=== PATIENT | female | born 1955 | race Caucasian/White ===

== ENCOUNTER 2017-12-14 09:11 | Outpatient (CLI) | payer BC ==
--- NOTE | 2017-12-14 14:37 | NM ---
HEPATOBILIARY SCAN: HISTORY: Nausea. RADIOPHARMACEUTICAL: Technetium 99m mebrofenin 5 millicuries injected intravenously. FINDINGS: There is good tracer extraction by the liver with normal excretion into the biliary tract, and the sm all bowel loops, and normal filling of the gallbladder. The calculated gallbladder ejection fraction following an oral fatty meal measures 51%. IMPRESSION: Normal exam. POS: [facility]
== END 2017-12-14 09:12 | disposition home or self-care (01) ==
LOC: NM 09:11
PROVIDERS: ATTEND Internal Medicine Gastroenterology
DX: K58.9 Irritable bowel syndrome, unspecified (principal); K21.9 Gastro-esophageal reflux disease without esophagitis; R11.0 Nausea
CPT/HCPCS: 78227; A9537

== ENCOUNTER 2019-08-03 08:22 | Outpatient (CLI) | payer BC ==
--- NOTE | 2019-08-03 09:49 | BD ---
DEXA BONE MINERAL DENSITY STUDY: HISTORY: Osteoporosis screening. Postmenopausal female. COMPARISON: None. FINDINGS: LUMBAR SPINE BMD (g/cm2) T-SCORE Z-SCORE L1 0.804 -1.7 -0.3 L2 0.857 -1.6 0.0 L3 0.914 -1.5 0.1 L4 0.869 -1.7 -0.1 TOTAL 0.864 -1.7 -0.1 HIP BMD (g/cm2) T-SCORE Z-SCORE LEFT FEMORAL NECK 0.635 -1.9 -0.6 TOTAL LEFT HIP 0.731 -1.7 -0.7 WHO CLASSIFICATION: Osteopenia. TEN YEAR FRACTURE RISK: Major osteoporotic fracture 8.6%. Hip fracture 1.6%. IMPRESSION: Osteopenia with elevated fracture risk. POS: [facility]
--- NOTE | 2019-08-06 08:56 | MMO ---
Bilateral MAMMO Bilat Screen [facility]. CLINICAL HISTORY: Patient is 63 years old and is seen for screening. The patient has the following family history of breast cancer: mother. The patient has no personal history of cancer. VIEWS: The views performed were: bilateral craniocaudal with tomosynthesis and bilateral mediolateral oblique with tomosynthesis. FILMS COMPARED: The present examination has been compared to prior imaging studies performed at [facility] on 06/21/2016, 07/12/2017 and 07/18/2018. This study has been interpreted with the assistance of computer-aided detection. MAMMOGRAM FINDINGS: There are scattered fibroglandular densities. There are no suspicious masses, suspicious calcifications, or new areas of architectural distortion. IMPRESSION: THERE IS NO MAMMOGRAPHIC EVIDENCE OF MALIGNANCY. A ROUTINE FOLLOW-UP MAMMOGRAM IN 1 YEAR IS RECOMMENDED. THE RESULTS OF THIS EXAM WERE SENT TO THE PATIENT. ACR BI-RADS Category 1 - Negative MAMMOGRAPHY NOTE: 1. A negative mammogram report should not delay a biopsy if a dominant of clinically suspicious mass is present. 2. Approximately 10% to 15% of breast cancers are not detected by mammography. 3. Adenosis and dense breasts may obscure an underlying neoplasm. Reported by: SILVIA FORDE MD Electonically Signed: [id number]
== END 2019-08-03 08:23 | disposition home or self-care (01) ==
LOC: BICMAMMO 08:22
PROVIDERS: ATTEND Internal Medicine Rheumatology
DX: Z12.31 Encounter for screening mammogram for malignant neoplasm of breast (principal); M81.0 Age-related osteoporosis without current pathological fracture; Z80.3 Family history of malignant neoplasm of breast; M85.89 Other specified disorders of bone density and structure, multiple sites
CPT/HCPCS: 77063; 77067; 77080